=== PATIENT | female | born 1985 | race Caucasian/White ===

== ENCOUNTER → 2016-11-12 | Outpatient (CLI) | payer MEDICAID | END | disposition disaster alternative care site (69) | LOC: GRAD 14:03 | DX: R31.9 Hematuria, unspecified (principal) ==

== ENCOUNTER → 2016-12-11 | Outpatient (CLI) | payer MEDICAID | END | disposition disaster alternative care site (69) | LOC: GRAD 09:00 | DX: G44.009 Cluster headache syndrome, unspecified, not intractable (principal); R44.1 Visual hallucinations ==

== ENCOUNTER → 2017-01-05 | Outpatient (CLI) | payer MEDICAID ==
--- NOTE | ~2017-01-05 | ECHO ---
Transthoracic Echocardiography Report (TTE) Demographics Patient Name CONNOR HDEZ Date of Study 01/05/2017 Patient Number [id number] Visit Number [id number] Date of 1985 Room Number Accession Number [id number] Gender Female Age 31 year(s) Referring Stacy MAURICIO Academy Director Adriel Phillips RVT Physician Physician Interpreting Alisia Villanueva Professor Of Biblical Studies Physician MD Supervising Ordering Physician Stacy MAURICIO MD/MLP Nurse Stress Curtain Inspector Conclusions Summary Technically difficult study. LV/RV size and systolic function appear grossly normal. LVEF is 50-55%. RV is not well visualized. Normal right atrial size. IVC not visualized due to poor subcostal window. Mild mitral regurgitation by color Doppler. Trivial tricuspid regurgitation by color Doppler. Trivial pericardial effusion. Procedure Type of Study TTE procedure:2D Echocardiogram. Procedure Date Date: 01/05/2017 Start: 11:14 AM Study Location: Echo Lab Technical Quality: Adequate visualization Indications:Dizziness. Appropriate Use Criteria: 9 Patient Status: Routine HR: 70 bpm M-Mode/2D Measurements LV Diastolic Dimension: 3.54 cm LV Systolic Dimension: 2.34 cm LV Septum Diastolic: 0.97 cm LV PW Diastolic: 0.85 cm AO Root Dimension: 2 cm Cardiac Output: 2.35 l/min AV Cusp Separation: 1.9 cm LA volume: 29 ml RV Base: 2.14 cm LVOT: 1.7 cm RV Mid: 2.43 cm LVOT VTI: 14.8 cm RV Length: 4.45 cm LV Stroke volume: 33.58 ml TDI-S': 12.6 cm/s Doppler Measurements AV Peak Velocity: 1.17 m/s MV Peak E-Wave: 1.2 m/s AV Peak Gradient: 5.48 mmHg AV Mean Gradient: 2 mmHg MV P1/2t: 58 msec LVOT Peak Velocity: 0.78 m/s TR Velocity:2.04 m/s PV Peak Velocity: 0.8 m/s TR Gradient:16.65 mmHg PV Peak Gradient: 2.59 mmHg A' Septal Velocity: 0.04 m/s E' Septal Velocity: 0.11 m/s A' Lateral Velocity: 0.04 m/s E' Lateral Velocity: 0.15 m/s Findings Left Ventricle Normal left ventricle size and function. Unable to comment accurately on diastolic function due to poor doppler tracings. Left Atrium Normal left atrial size. Right Atrium Normal right atrial size. IVC not visualized due to poor subcostal window. Mitral Valve Mild mitral regurgitation by color Doppler. Eccentric posteriorly directed jet. Aortic Valve Normal aortic valve structure and function. Tricuspid Valve Trivial tricuspid regurgitation by color Doppler. Pulmonic Valve Normal pulmonic valve structure and function. Pericardial Effusion Trivial pericardial effusion. Miscellaneous Visualized portions of the aortic root and ascending aorta appear normal in size. Pleural Effusion No evidence of pleural effusion. Contractility Score LV regional wall motion:(0-Non visualized 1-Normal 2-Hypokinesis 3-Akinesis 4-Dyskinesis 5-Aneurysm) Signature dtt: ZHOU MOLINA dtd: 01/05/17 1114 Physician Self Edit
== END | disposition disaster alternative care site (69) ==
LOC: GCAR 10:46
DX: R42 Dizziness and giddiness (principal); I08.1 Rheumatic disorders of both mitral and tricuspid valves; I31.3 Pericardial effusion (noninflammatory)